=== PATIENT | male | born 1975 | race Caucasian/White ===

== ENCOUNTER 2017-10-27 05:27 | Day surgery (SDC) | payer OTHER ==
[~2017-10-27] VITALS: Ht 185.4 cm; Wt 108.9 kg
--- NOTE | ~2017-10-27 | H ---
[facility] [place] [address] HISTORY AND PHYSICAL Name: MICHAEL POE Room #: 150-11 [facility]..#: [id number] Admission: 10/27/17 Attend Phys: Chong Powell MD Discharge: Date of : 79 Report #: [id number] THIS REPORT FOR: //name// CC: FAM unknown Chong Powell DATE OF SERVICE: 10/27/2017 DATE OF PROCEDURE: 10/27/2017 HISTORY OF PRESENT ILLNESS: The patient cannot breathe well through his nose. He is frustrated because he has never been able to breathe through his nose. He has allergies. He has tried numerous allergy medications and nasal sprays and nothing really helps him. He has obstructive sleep apnea and was given a CPAP machine, but cannot use it because he cannot breathe through his nose. PHYSICAL EXAMINATION: He has a deviated nasal septum to the right side with allergic swelling on both sides of his nose. IMPRESSION: Deviated nasal septum with nasal airway obstruction. A CT scan shows a deviated nasal septum, but his sinuses were clear. PLAN: Nasal septoplasty. <ELECTRONICALLY SIGNED> By: Chong Powell MD 10/27/17 [id number] Chong Powell MD /nt
--- NOTE | ~2017-10-27 | O ---
[facility] [place] [address] OPERATIVE REPORT Name: MICHAEL POE II Room #: DEP [facility].#: [id number] Admission: 10/27/17 Attend Phys: Chong Powell MD Discharge: 10/27/17 Date of : 79 Report #: [id number] THIS REPORT FOR: //name// CC: FAM unknown Chong Powell DATE OF SERVICE: 10/27/2017 PREOPERATIVE DIAGNOSES: Deviated nasal septum with nasal airway obstruction. POSTOPERATIVE DIAGNOSES: Deviated nasal septum with nasal airway obstruction. OPERATIVE PROCEDURE: Nasal septoplasty. ANESTHESIA: General by laryngeal mask. DESCRIPTION OF PROCEDURE: The patient was taken to the operating room and placed in supine position. General anesthesia was induced by laryngeal mask. Once adequate general anesthesia was obtained, local nasal anesthesia was induced by submucoperichondrial injection of 1% lidocaine with 1:100,000 epinephrine and topical application of cocaine solution. The patient was then draped in a sterile manner. The patient had a nasal septal deviation primarily to the right side with a large septal spur along the floor on the left. A hemitransfixion incision was placed on the right side of the nose and the mucoperichondrium and mucoperiosteum was elevated off the septum. The cartilage was incised in front of the bony cartilaginous junction and a portion of cartilage and bone was removed from the midportion of the septum. Along the floor, there was hypertrophic cartilage and a fracture of the maxillary crest. The cartilage was removed as a long strip the maxillary crest was chiseled and rongeured. After these maneuvers, the septum sat more in the midline. The hemitransfixion incision was then closed with 4-0 chromic suture and a 4-0 plain mattress suture was placed as well. The patient tolerated the procedure well. Blood loss approximately 10 mL. The patient was then awoken and taken to the recovery room in stable condition for postoperative monitoring. <ELECTRONICALLY SIGNED> By: Chong Powell MD 11/10/17 [id number] Chong Powell MD /nt
[~2017-10-27 05:27] MED LIST: FLONASE 0.05%50 MCG NASAL
[2017-10-27 07:23] VITALS: BP 169/88
== END 2017-10-27 18:20 | disposition home or self-care (01) ==
LOC: TBA 05:27 → OR 05:27
DX: J34.2 Deviated nasal septum (principal); J34.89 Other specified disorders of nose and nasal sinuses; Z87.891 Personal history of nicotine dependence
CPT/HCPCS: 50010; 50101; 50386; 50398; 56524; 56528; 62110; 62900; 64037